=== PATIENT | female | born 1990 | race Caucasian/White ===

== ENCOUNTER 2020-08-01 16:23 | Inpatient (IN) | payer OTHER, SELFPAY ==
[~2020-08-01] VITALS: Ht 165.1 cm; Wt 65.8 kg
[2020-08-01 16:38] VITALS: BP 97/60
--- NOTE | 2020-08-01 16:43 | NUR ---
29 Y/O FEMALE C/O NAUSEA, LOWER ABD CRAMPING, PREG 19 WEEKS. LMP 03/17/20. FELISHA 12/23/20. +YELLOW DISCHARGE NO VAGINAL BLEEDING. DIZZY WITH LOW BACK PAIN. PMH: DENIES + CARE TEODOROA
--- NOTE | 2020-08-01 16:52 | NUR ---
Dr. Mehta at pt bedside.
[2020-08-01] MEDS ORDERED: ACETAMINOPHEN 325 MG TAB PO ONE (17:55)
[2020-08-01] MEDS ORDERED: MORPHINE SULFATE 4 MG/ML SYR IVP ONE (18:10)
--- NOTE | 2020-08-01 18:34 | NUR ---
Pt ambulated to restroom, provided UA specimen.
[2020-08-01] MEDS ORDERED: MORPHINE SULFATE 4 MG/ML SYR ONE (19:26)
--- NOTE | 2020-08-01 19:32 | NUR ---
Gave report to NEFTALY Smith, transfered care at this time.
--- NOTE | 2020-08-01 19:33 | NUR ---
RECEIVED REPORT FROM MARTA HIGGINBOTHAM. NO IV ACCESS, MD MOLINA ORDERED MS 4MG IM
--- NOTE | 2020-08-01 19:33 | NUR ---
RECEIVED REPORT FROM MARTA HIGGINBOTHAM. NO IV ACCESS, MD MOLINA ORDERED MS 4MG IM PREVIOUS ENTRY BY JOSE HIGGINBOTHAM ERROR
[2020-08-01] MEDS ORDERED: MORPHINE SULFATE 4 MG/ML SYR IM ONE (19:35)
--- NOTE | 2020-08-01 19:52 | NUR ---
PT STATES PAIN IS NOW 2/10 AFTER MS 4 MG
[2020-08-01 22:16] LABS: HEMATOCRIT 36.1 % (36-48); HEMOGLOBIN 12.3 g/dL (12.0-16.0); MEAN CORPUSCULAR HEMOGLOBIN 30 pg (27-31); MEAN CORPUSCULAR HGB CONC 34 g/dL (33-37); MEAN CORPUSCULAR VOLUME 88.2 fL (80-94); PLATELET COUNT (AUTO) 283 K/uL (140-450); RED BLOOD CELL COUNT(AUTO) 4.09 MIL/uL (4.20-5.40); RED CELL DISTRIBUTION WIDTH 13.2 % (11.6-13.7); WHITE BLOOD COUNT (AUTO) 18.6 K/uL (4.8-10.8)
--- NOTE | 2020-08-01 22:31 | NUR ---
URINE TAKEN FROM [facility] TO [facility], WAS NEVER PICKED UP BY LAB
[2020-08-01 22:33] LABS: ALBUMIN 3.3 g/dL (3.4-5.0); ANION GAP 14.3 (8-16); CARBON DIOXIDE 22.2 mmol/L (21-32); CREATININE 0.6 mg/dL (0.6-1.3); POTASSIUM 3.5 mmol/L (3.5-5.1); TOTAL BILIRUBIN 0.2 mg/dL (0.0-1.0)
[2020-08-01 22:38] LABS: LYMPHOCYTES % (MANUAL) 5 % (20-46); MONOCYTES % (MANUAL) 3 % (5-12)
[2020-08-01 22:44] LABS: BILIRUBIN,URINE NEGATIVE (NEGATIVE); BLOOD, URINE NEGATIVE (NEGATIVE); COLOR,URINE YELLOW (YELLOW); LEUKOCYTE ESTERASE ,URINE NEGATIVE (NEGATIVE); NITRITE, URINE NEGATIVE (NEGATIVE); PH,URINE 7.5 (5.0-9.0); UGLUCOSE NEGATIVE (NEGATIVE)
--- NOTE | 2020-08-01 23:00 | NUR ---
PT RESTING IN BED WITH EYES CLOSED. RESPIRATIONS REGULAR EVEN AND UNLABORED. NO ACUTE DISTRESS NOTED.
[2020-08-01 23:13] LABS: APPEARANCE,URINE SLIGHTLY HAZY (CLEAR)
[2020-08-01 23:14] LABS: CALCIUM OXALATE CRYSTALS,UR 0-10 /HPF (None Seen); RBC,URINE 0-5 /HPF (0-5); WBC,URINE 0-5 /HPF (0-5)
--- NOTE | 2020-08-02 00:19 | NUR ---
PT WILL BE ADMITTED TO FLOOR. PT'S HAVING 7 ABD PAIN, MD MOLINA AWARE AND AT BEDSIDE SPEAKING WITH PT
--- NOTE | 2020-08-02 00:33 | NUR ---
ZULY SWAB COLLECTED AND TAKEN TO LAB
[2020-08-02] MEDS ORDERED: MORPHINE SULFATE 4 MG/ML SYR IVP SCH (00:35)
[2020-08-02] MEDS ORDERED: MORPHINE SULFATE 4 MG/ML SYR ONE (00:42)
[2020-08-02] MEDS ORDERED: PNV91TAB10 PO (02:26)
--- NOTE | 2020-08-02 05:58 | NUR ---
PT SLEEPING, RESPIRATIONS REGULAR EVEN AND UNLABORED.
--- NOTE | 2020-08-02 06:57 | NUR ---
PT UP TO RESTROOM, STATED SHE FELT LIKE SHE NEED TO HAVE A BM, SHE FELT PRESSURE. NO BM BUT DID HAVE BROWN DISCHARGE FROM VAGINA. ALSO HAVING ABD PAIN AGAIN 02/27. WILL NOTIFY ADMITTING MD
--- NOTE | 2020-08-02 07:40 | NUR ---
Received report from NEFTALY Smith. Transfer of care at this time.
[2020-08-02] MEDS: MORPHINE SULFATE 2 MG/ML SYR IVP PRN ×3 (08:19→17:41)
[2020-08-02] MEDS ORDERED: DOCUSATE SODIUM 100 MG GELCAP PO PRN (08:45)
[2020-08-02] MEDS ORDERED: ACETAMINOPHEN 325 MG TAB PO PRN (08:45)
[2020-08-02] MEDS ORDERED: ONDANSETRON 4 MG/2 ML VIAL IM/IVP PRN (08:45)
[2020-08-02] MEDS: NACL 0.9% 1,000 ML IV SCH ×2 (09:04→22:27)
--- NOTE | 2020-08-02 09:13 | NUR ---
Pt denies pain at this time, positioned for comfort. Denies n/v. VSS, will continue to monitor
[2020-08-02] MEDS ORDERED: cefTRIAXone 1,000 MG VIAL ONE (10:13)
[2020-08-02 10:34] LABS: BASOPHILS % (AUTO) 0.1 % (0.0-2.0); EOSINOPHILS # (AUTO) 0.1 K/uL (0-0.4); EOSINOPHILS % (AUTO) 0.9 % (0.0-4.0); HEMATOCRIT 32.2 % (36-48); LYMPHOCYTES # (AUTO) 1.2 K/uL (2.5-16.5); LYMPHOCYTES % (AUTO) 8.3 % (20.5-51.1); MEAN CORPUSCULAR HEMOGLOBIN 30 pg (27-31); MEAN CORPUSCULAR HGB CONC 34 g/dL (33-37); MEAN CORPUSCULAR VOLUME 88.3 fL (80-94); MONOCYTES # (AUTO) 0.7 K/uL (0.8-1.0); MONOCYTES % (AUTO) 4.5 % (1.7-9.3); NEUTROPHILS % (AUTO) 86.2 % (42.2-75.2); PLATELET COUNT (AUTO) 230 K/uL (140-450); RED BLOOD CELL COUNT(AUTO) 3.65 MIL/uL (4.20-5.40)
[2020-08-02 11:04] LABS: ANION GAP 12.4 (8-16); CHOL/HDL RATIO 2.4 (1-4.5); CREATININE 0.6 mg/dL (0.6-1.3); MAGNESIUM 1.8 mg/dL (1.8-2.4); PHOSPHORUS 3.5 mg/dL (2.5-4.9); POTASSIUM 3.4 mmol/L (3.5-5.1); THYROID STIMULATING HORMONE 0.65 uIU/mL (0.34-3.74)
--- NOTE | 2020-08-02 11:23 | NUR ---
PATIENT HAS BEEN SCREENED AND CATEGORIZED MODERATE NUTRITION RISK. PATIENT WILL BE SEEN WITHIN 3-5 DAYS OF ADMISSION. 08/05/20 - 08/07/20 MARTHA MASON MBA, RD
[2020-08-02 11:47] LABS: PROTHROMBIN TIME 9.3 secs (10.8-13.4)
--- NOTE | 2020-08-02 12:03 | NUR ---
Resting with eyes closed, visible rise and fall of the chest. VSS
--- NOTE | 2020-08-02 12:16 | NUR ---
Pt ambulated to restroom with steady gait.
[2020-08-02 12:39] LABS: BARBITURATE, URINE NEGATIVE ng/ml (NEG <=200); BENZODIAZEPINE, URINE NEGATIVE ng/mL (NEG <=200); CANNABINOID, URINE NEGATIVE ng/mL (NEG <=50); COCAINE, URINE NEGATIVE ng/mL (NEG <=300); OPIATE, URINE NEGATIVE ng/mL (NEG <=2000); PHENCYCLIDINE SCREEN,URINE NEGATIVE ng/mL (NEG <=25)
--- NOTE | 2020-08-02 12:52 | NUR ---
Dr Burrell at bedside for pelvic exam, patient tolerated well
--- NOTE | 2020-08-02 15:36 | NUR ---
Pt ambulated to restroom with steady gait.
--- NOTE | 2020-08-02 16:46 | NUR ---
Report called to NEFTALY Erickson.
[2020-08-02 17:15] VITALS: BP 121/74
--- NOTE | 2020-08-02 17:27 | NUR ---
Patient will be admitted to care of Dr Hill. Admited to Tele. Will go to room 104B. Belongings list completed. Report to NEFTALY Erickson.
--- NOTE | 2020-08-02 17:30 | NUR ---
RECEIVED PATIENT FROM ER, PATIENT IS AOX4, SINUS RHYTHM, RESPIRATIONS EVEN AND UNLABORED ON ROOM AIR. REPORTS PAIN 6/10 IN RUQ. PRN MORPHINE GIVEN WITH RELIEF. IV FLUIDS INFUSING AT 60 CC/HOUR. UPDATED PATIENT ON PLAN OF CARE. DR ALICEA AT BEDSIDE, CHANGED DIET TO FULL LIQUID. TOLERATING WELL WITH NO N/V. WILL ENDORSE TO NIGHT RN.
--- NOTE | 2020-08-02 19:20 | NUR ---
RECEIVED PT ON BED, AAOX4, DENIES ANY PAIN, IVF INFUSING WELL, TOLERATING FULL LIQUID DIET, INSTRUCTED NPO AFTER MIDNIGHT, PLAN OF CARE DISCUSSED, SAFETY MEASURES IN PLACE, CALL LIGHT WITHIN REACH.
[2020-08-02 20:00] VITALS: BP 107/64
--- NOTE | 2020-08-02 21:35 | NUR ---
L&D NURSE CAME IN AND DID HEART TONE CHECKED WITH RANGE OF 132 TO 142 BPM, PT DENIES ANY PAIN, IVF INFUSING WELL, ALL NEEDS ATTENDED.
[2020-08-03] VITALS: BP 97/49
--- NOTE | 2020-08-03 | NUR ---
PT SLEEPING, EASILY AROUSABLE, DENIES ANY PAIN, NPO AFTER MIDNIGHT STATUS IN PLACE, IVF INFUSING WELL, CONTINUE TO MONITOR CLOSELY.
[2020-08-03] MEDS: NACL 0.9% 1,000 ML IV SCH ×2 (01:25→16:12)
[2020-08-03 04:00] VITALS: BP 90/70
--- NOTE | 2020-08-03 06:10 | NUR ---
SEEN PT SLEEPING, NO SIGNS OF DISTRESS, IVF INFUSING WELL, MONITORED CLOSELY.
[2020-08-03 06:54] LABS: BASOPHILS % (AUTO) 0.4 % (0.0-2.0); EOSINOPHILS # (AUTO) 0.2 K/uL (0-0.4); EOSINOPHILS % (AUTO) 2.5 % (0.0-4.0); HEMATOCRIT 29.6 % (36-48); HEMOGLOBIN 10.2 g/dL (12.0-16.0); LYMPHOCYTES # (AUTO) 1.6 K/uL (2.5-16.5); LYMPHOCYTES % (AUTO) 16.6 % (20.5-51.1); MEAN CORPUSCULAR HEMOGLOBIN 31 pg (27-31); MEAN CORPUSCULAR HGB CONC 35 g/dL (33-37); MEAN CORPUSCULAR VOLUME 89.3 fL (80-94); MONOCYTES # (AUTO) 0.5 K/uL (0.8-1.0); MONOCYTES % (AUTO) 4.7 % (1.7-9.3); NEUTROPHILS # (AUTO) 7.3 K/uL (1.8-7.7); NEUTROPHILS % (AUTO) 75.8 % (42.2-75.2); PLATELET COUNT (AUTO) 204 K/uL (140-450); RED BLOOD CELL COUNT(AUTO) 3.31 MIL/uL (4.20-5.40); RED CELL DISTRIBUTION WIDTH 13.1 % (11.6-13.7); WHITE BLOOD COUNT (AUTO) 9.6 K/uL (4.8-10.8)
--- NOTE | 2020-08-03 07:38 | NUR ---
PT AWAKE, NO DISTRESS NOTED, REPORT GIVEN TO NEFTALY SANTOS FOR CONTINUITY OF CARE.
--- NOTE | 2020-08-03 07:40 | NUR ---
RECEIVED PT FROM MANAGER SHIP NURSE, PT IS ON ROOM AIR, CONTINENT, IV NOTED TO LILLI G22, NS AT 60 ML,HR, SAFETY AND FALL PRECAUTIONS IN PLACE, WILL CONTINUE TO MONITOR.
[2020-08-03 08:00] VITALS: BP 95/52
[2020-08-03 09:13] LABS: T4 (THYROXINE) 9.5 ug/dL (4.5-12.0)
--- NOTE | 2020-08-03 09:20 | NUR ---
GELY HERNANDEZ: RECEIVED ORDER FOR TRANSFER TO [facility] [place] [facility]. Addendum: 08/03/20 at 1703 by Josefina Casey DISCUSSED DURING BED HUDDLE, WILL HOLD OFF ON MRI PENDING COLLEGE DEAN'S RECOMMENDATIONS.
--- NOTE | 2020-08-03 11:30 | NUR ---
PT WENT TO USE THE RESTROOM NOW, ROCEPHIN MEDICATION WAS NOT IN PT BIN, PHARMACY TO SEND MEDICATION. WILL CONTINUE TO MONITOR.
--- NOTE | 2020-08-03 11:51 | NUR ---
SOCIAL WORK NOTE: SW WAS UNABLE TO MEET PATIENT AT BEDSIDE DUE TO MEDICAL CONDITION. SW LEFT VM TO , JULIO BROUSSARD [phone] TO COMPLETE ASSESSMENT.
--- NOTE | 2020-08-03 11:57 | NUR ---
SCHEDULED MEDICATION GIVEN, PT STATED 3 OUT OF 10 PAIN TO LOWER ABDOMEN, TYLENOL PROVIDED, EDUCATION PROVIDED, PT VERBALIZED UNDERSTANDING, WILL CONTINUE TO MONITOR.
[2020-08-03 12:00] VITALS: BP 97/59
[2020-08-03 16:00] VITALS: BP 108/70
--- NOTE | 2020-08-03 16:14 | NUR ---
PT IS SITTING IN BED USING CELL PHONE, PT STATES SHE FEELS WELL, NO SIGNS OF DISTRESS NOTED, WILL CONTINUE TO MONITOR.
[2020-08-03] MEDS ORDERED: CEPH250C16 PO (16:47)
--- NOTE | 2020-08-03 18:09 | NUR ---
HEART TONES DONE BY L&D ARE WNL, [phone], PT IS AWAKE AND ALERT, WILL CONTINUE TO MONITOR.
[2020-08-03 18:24] VITALS: BP 108/70
--- NOTE | 2020-08-03 19:10 | NUR ---
DISCHARGED PT TO HOME WITH IN PRIVATE VEHICLE, TEACHING AND INSTRUCTIONS WERE PROVIDED, PT VERBALIZED UNDERSTANDING, IV REMOVED, ARM BANDS REMOVED, TELE MONITOR REMOVED.
== END 2020-08-03 19:00 | disposition home or self-care (01) | DRG 832 ==
LOC: MED 16:23 → MTU 08-02 05:07
PROVIDERS: ADMIT Family Medicine; ATTEND Family Medicine
DX: O98.812 Other maternal infectious and parasitic diseases complicating pregnancy, second trimester (principal); N13.30 Unspecified hydronephrosis; Z20.828 Contact with and (suspected) exposure to other viral communicable diseases; O99.891 Other specified diseases and conditions complicating pregnancy; N32.3 Diverticulum of bladder; Z3A.19 19 weeks gestation of pregnancy; Z83.3 Family history of diabetes mellitus; Z82.49 Family history of ischemic heart disease and other diseases of the circulatory system; Z82.5 Family history of asthma and other chronic lower respiratory diseases
CPT/HCPCS: 36415; 76700; 76705; 76805; 80048; 80053; 80305; 81001; 82150; 83036; 83690; 83735; 83880; 84100; 84134; 84436; 84443; 84702; 85025; 85610; 85730; 86900; 86901; 87040; 87086; 96372; 96374; 99285; J0696; J2270; J7060